=== PATIENT | male | born 1965 | race Hispanic/Latino ===

== ENCOUNTER 2017-10-18 18:57 | Emergency (ER) | payer SELFPAY ==
[2017-10-18 19:42] LABS: Hemoglobin 7.5 g/dL (14.0-18.0); Mean Corpuscular Hemoglobin 25.3 pg (27.0-31.0); Mean Corpuscular Volume 74.5 fl (80.0-94.0); Mean Platelet Volume 6.2 fL (7.4-10.4); Platelet Count 228 thou/uL (130-400); RBC Distribution Width 15.8 % (11.5-14.5); Red Blood Cell (RBC) Count 2.94 mill/uL (4.70-6.10); White Blood Cell (WBC) Count 8.4 thou/uL (4.8-10.8)
[2017-10-18 19:56] LABS: #Basophils 0.2 thou/uL (0.0-0.2); #Eosinphils 0.3 thou/uL (0.0-0.7); #Lymphocytes 2.5 thou/uL (1.20-3.40); #Monocytes 0.6 thou/uL (0.11-0.59); #Neutrophils 4.9 thou/uL (1.40-6.50); %Basophils 1.9 % (0.0-1.0); %Eosinophils 3.1 % (0.0-10.0); %Lymphocytes 29.7 % (21.0-51.0); %Neutrophils 58.2 % (42.0-75.0); Hypochromia SLIGHT = 6-15 cells (100X) (0-5/hpf); MDiff Complete? YES; Microcytosis SLIGHT = 6-15 cells (100X) (0-5/hpf)
[2017-10-18 19:58] LABS: ALT (SGPT) 33 U/L (8-55); AST (SGOT) 49 U/L (5-34); Albumin 2.8 g/dL (3.5-5.0); Alkaline Phosphatase 58 U/L (40-150); Anion Gap 22 mmol/L (10-20); BUN (Urea Nitrogen) 84 mg/dL (8.4-25.7); Bilirubin, Total 0.4 mg/dL (0.2-1.2); Calc. Creatinine Clearance 0 mL/min (70-130); Carbon Dioxide 10 mmol/L (22-29); Chloride 112 mmol/L (98-107); Estimated GFR-MDRD 6; Globulin 3.9 g/dL (2.4-3.5); Glucose 73 mg/dL (70-105); Potassium 5.2 mmol/L (3.5-5.1); Protein, Total 6.7 g/dL (6.0-8.3); Sodium 139 mmol/L (136-145)
[2017-10-18 20:00] LABS: Troponin I 0.029 ng/mL (< 0.028)
[2017-10-18 20:05] LABS: Calcium 6.7 mg/dL (7.8-10.44)
[2017-10-18 20:13] LABS: CKMB 26.9 ng/mL (0-6.6)
[2017-10-18] MEDS ORDERED: Nitroglycerin 2% Ointment 1 INCH/1 GM Packet ONE (20:25)
[2017-10-18] MEDS ORDERED: Furosemide 100 MG/10 ML VIAL ONE (20:25)
--- NOTE | 2017-10-18 23:41 | RAD ---
PORTABLE CHEST 10/18/17 An AP portable film at 1950 is presented with no prior films available for comparison. The heart is mildly enlarged. There might be a trace of blunting in each costophrenic angle, so I can not rule out tiny effusions. No lobar infiltrate was appreciated. The lungs are clear. I do not feel the upper lobe vessels are significantly congested at this point. The trachea is midline. IMPRESSION: Mild cardiomegaly. Questionable blunting of the costophrenic angles. POS: HOME
== END 2017-10-18 20:57 | disposition short-term general hospital (02) ==
LOC: BURERS 18:57
DX: N17.9 Acute kidney failure, unspecified (principal); E87.5 Hyperkalemia; I10 Essential (primary) hypertension; D50.9 Iron deficiency anemia, unspecified; E11.9 Type 2 diabetes mellitus without complications; Z79.891 Long term (current) use of opiate analgesic; Z79.899 Other long term (current) drug therapy; Z79.4 Long term (current) use of insulin
CPT/HCPCS: 71045; 80053; 82553; 83880; 84484; 85025; 93005; 96374; J1940